=== PATIENT | male | born 1935 | race African-American/Black ===

== ENCOUNTER 2020-08-04 11:46 | Inpatient (IN) ==
[2020-08-04] MEDS ORDERED: ACETAMINOPHEN 500 MG TABLET PO STA (14:02)
[2020-08-04] MEDS ORDERED: AZITHROMYCIN INJ 500 MG in SODIUM CHLORIDE 0.9% 250 ML IV STA (14:03)
[2020-08-04] MEDS ORDERED: cefTRIAXone 1,000 MG in SODIUM CHLORIDE 0.9% 100 ML IV STA (14:03)
[2020-08-04 14:35] LABS: Basophils % 0.2 % (0.0-0.8); Eosinophils % 0.2 % (0.00-10.9); Hematocrit 38.8 VOL% (42.0-52.0); Hemoglobin 12.9 GM/DL (14.0-18.0); Immature Granulocytes % 0.9 %; Immature Granulocytes Absolute 0.06 #; Lymphocytes # 0.4 10*3/uL (1.4-4.0); Lymphocytes % 6.5 % (21.2-54.2); Mean Corpuscular HGB Conc 33.2 GM/DL (32-36); Mean Platelet Volume 10.9 FL (9.6-12.0); Monocytes % 18.1 % (1.7-12.7); Neutrophils % 74.1 % (38.7-73.9); Platelet Count 90 T/CUMM (130-400); Red Blood Count 4.51 MC/CUMM (3.8-5.5); Red Cell Distribution Width 17.2 % (9.3-17.3); White Blood Count 6.6 T/CUMM (4-12)
[2020-08-04 14:58] LABS: Albumin 3.2 G/DL (3.4-5.0); Bilirubin,Total 0.9 MG/DL (0.2-1.0); Calcium 9.8 MG/DL (8.5-10.1); Ferritin 347.7 ng/ml (26-388); Osmolality,Calculated 268.4 MOS/KG (273-304); Total Protein 8.4 G/DL (6.4-8.3)
[2020-08-04] MEDS ORDERED: DEXTROSE 50% 25 GM/50 ML VIAL IV PRN (15:25)
[2020-08-04] MEDS ORDERED: GLUCAGON 1 MG VIAL IM PRN (15:25)
[2020-08-04] MEDS ORDERED: ACETAMINOPHEN 325 MG TABLET PO PRN (15:25)
[2020-08-04] MEDS ORDERED: ONDANSETRON 4 MG/2 ML VIAL IV PRN (15:25)
[2020-08-04] MEDS ORDERED: CETIRIZINE 10 MG TABLET PO PRN (15:25)
[2020-08-04 16:05] LABS: Band Neutrophils 2 % (0-10); Lymphocytes 9 % (20-55); Platelet Estimate Decreased; Segmented Neutrophils 72 % (50-85); Total Cells Counted 100
[2020-08-04 16:28] LABS: Risk Ratio 2.81; VLDL CHOLESTEROL 19.4 MG/DL
[2020-08-04 16:29] LABS: Thyroid Stimulating Hormone 0.762 uIU/ml (0.358-3.74)
[2020-08-04] MEDS: SODIUM CHLORIDE 0.9% 1,000 ML IV SCH (17:22)
[2020-08-04] MEDS: DEXAMETHASONE 4 MG/1 ML VIAL IV SCH (17:23)
[2020-08-04] MEDS: ENOXAPARIN 40 MG/0.4 ML SYRINGE SUBCUT SCH (21:46)
[2020-08-04] MEDS: ASCORBIC ACID 500 MG TABLET PO SCH (21:47)
[2020-08-04] MEDS: FAMOTIDINE 20 MG TABLET PO SCH (21:47)
[2020-08-05 06:22] LABS: Hematocrit 33.2 VOL% (42.0-52.0); Hemoglobin 11.4 GM/DL (14.0-18.0); Immature Granulocytes % 1.2 %; Immature Granulocytes Absolute 0.06 #; Lymphocytes # 0.3 10*3/uL (1.4-4.0); Lymphocytes % 5.3 % (21.2-54.2); Mean Corpuscular HGB Conc 34.3 GM/DL (32-36); Mean Corpuscular Volume 85.3 FL (87-102); Monocytes % 12.7 % (1.7-12.7); Neutrophils % 80.8 % (38.7-73.9); Red Blood Count 3.89 MC/CUMM (3.8-5.5)
[2020-08-05 06:23] LABS: Platelet Count 83 T/CUMM (130-400)
[2020-08-05] MEDS: SODIUM CHLORIDE 0.9% 1,000 ML IV SCH (06:45)
[2020-08-05 06:48] LABS: Calcium 9.7 MG/DL (8.5-10.1); Osmolality,Calculated 272.1 MOS/KG (273-304)
[2020-08-05 06:51] LABS: Lymphocytes 5 % (20-55); Nucleated Red Blood Cells 1 (0-5); Platelet Estimate Decreased; Segmented Neutrophils 87 % (50-85); Total Cells Counted 100
[2020-08-05 06:52] LABS: Microcytosis Slight
[2020-08-05] MEDS ORDERED: POTASSIUM CHLORIDE 20 MEQ TABLET PO ONE (07:26)
[2020-08-05] MEDS ORDERED: IRON DEXTRAN 25 MG in SYRINGE 1 EACH IV ONE (07:28)
[2020-08-05 07:46] LABS: Bilirubin,Urine Negative (Negative); Blood, Urine Small mg/dL (Negative); Glucose,Urine (UA) Negative (Negative); Ketones,Urine Negative (Negative); Mucus,Urine Occasional /LPF (Occasional); Nitrite,Urine Negative (Negative); Protein,Urine 100 MG/DL; RBC,Urine 3 /HPF (0-4); Urine Appearance CLEAR (Clear); Urine Color Yellow (Yellow); Urine Urobilinogen < 2.0 EU/DL (0.2-1.0); WBC,Urine 1 /HPF (0-6)
[2020-08-05] MEDS ORDERED: LACTATED RINGERS 1,000 ML IV ONE (08:04)
[2020-08-05 08:21] LABS: Barbiturates Screen,Urine Negative (Negative); Benzodiazepines Screen,Urine Negative (Negative); Cannabinoid Screen,Urine Negative (Negative); Opiate Screen,Urine Negative (Negative); Phencyclidine Screen,Urine Negative (Negative)
[2020-08-05] MEDS: ZINC SULFATE 220 MG CAPSULE PO SCH (09:17)
[2020-08-05] MEDS: ASCORBIC ACID 500 MG TABLET PO SCH ×2 (09:17→21:38)
[2020-08-05] MEDS: cefTRIAXone 1,000 MG in SYRINGE 1 EACH IV SCH (09:17)
[2020-08-05] MEDS: CHOLECALCIFEROL 1,000 UNIT TABLET PO SCH (09:18)
[2020-08-05] MEDS: guaiFENesin/DM ER 600-30 MG TABLET PO SCH ×2 (09:27→21:38)
[2020-08-05] MEDS: DEXAMETHASONE 4 MG/1 ML VIAL IV SCH (09:27)
[2020-08-05] MEDS: AZITHROMYCIN INJ 500 MG in SODIUM CHLORIDE 0.9% 250 ML IV SCH (11:34)
[2020-08-05] MEDS: FERROUS SULFATE 325 MG TABLET PO SCH ×2 (13:38→21:38)
[2020-08-05] MEDS ORDERED: REMDESIVIR 200 MG in SODIUM CHLORIDE 0.9% 210 ML IV ONE (17:00)
[2020-08-05] MEDS ORDERED: SODIUM CHLORIDE 0.9% 1,000 ML IV PRN (18:09)
[2020-08-05] MEDS: FAMOTIDINE 20 MG TABLET PO SCH (21:38)
[2020-08-05] MEDS: ENOXAPARIN 40 MG/0.4 ML SYRINGE SUBCUT SCH (21:38)
[2020-08-06] MEDS: SODIUM CHLORIDE 0.9% 1,000 ML IV SCH ×3 (01:15→17:02)
[2020-08-06 06:10] LABS: Basophils % 0.2 % (0.0-0.8); Hemoglobin 11.8 GM/DL (14.0-18.0); Immature Granulocytes % 2.1 %; Immature Granulocytes Absolute 0.12 #; Lymphocytes # 0.2 10*3/uL (1.4-4.0); Lymphocytes % 3.1 % (21.2-54.2); Mean Corpuscular HGB Conc 33.7 GM/DL (32-36); Mean Corpuscular Volume 85.6 FL (87-102); Monocytes % 8.7 % (1.7-12.7); Neutrophils % 85.9 % (38.7-73.9); Platelet Count 104 T/CUMM (130-400); Red Blood Count 4.09 MC/CUMM (3.8-5.5); Red Cell Distribution Width 17.2 % (9.3-17.3); White Blood Count 5.8 T/CUMM (4-12)
[2020-08-06 06:35] LABS: Albumin 2.8 G/DL (3.4-5.0); Bilirubin,Total 0.6 MG/DL (0.2-1.0); Calcium 9.5 MG/DL (8.5-10.1); Osmolality,Calculated 276.8 MOS/KG (273-304); Total Protein 7.5 G/DL (6.4-8.3)
[2020-08-06 06:53] LABS: Band Neutrophils 3 % (0-10); Hypochromasia Slight; Lymphocytes 4 % (20-55); Microcytosis Slight; Platelet Estimate Decreased; Segmented Neutrophils 86 % (50-85); Total Cells Counted 100
[2020-08-06] MEDS: ZINC SULFATE 220 MG CAPSULE PO SCH (08:40)
[2020-08-06] MEDS: cefTRIAXone 1,000 MG in SYRINGE 1 EACH IV SCH (08:40)
[2020-08-06] MEDS: DEXAMETHASONE 4 MG/1 ML VIAL IV SCH (08:40)
[2020-08-06] MEDS: ASCORBIC ACID 500 MG TABLET PO SCH ×2 (08:41→22:00)
[2020-08-06] MEDS: AZITHROMYCIN INJ 500 MG in SODIUM CHLORIDE 0.9% 250 ML IV SCH (08:41)
[2020-08-06] MEDS: guaiFENesin/DM ER 600-30 MG TABLET PO SCH ×2 (08:41→22:00)
[2020-08-06] MEDS: FERROUS SULFATE 325 MG TABLET PO SCH ×2 (08:41→22:00)
[2020-08-06] MEDS: CHOLECALCIFEROL 1,000 UNIT TABLET PO SCH (08:41)
[2020-08-06] MEDS: REMDESIVIR 100 MG in SODIUM CHLORIDE 0.9% 230 ML IV SCH (10:15)
[2020-08-06] MEDS ORDERED: DEXAMETHASONE 4 MG/1 ML VIAL IV SCH (10:43)
[2020-08-06 12:32] LABS: ABG Base Excess 1.4 MMOL/L (-2.5-2.5); ABG HCO3 25.5 MMOL/L (20-26); ABG Oxygen Saturation 91.2 % (95-100); ABG PCO2 31.7 MM HG (35-48); ABG PH 7.489 (7.35-7.45); ABG TCO2 21.4 MMOL/L (23-27)
[2020-08-06] MEDS: ENOXAPARIN 40 MG/0.4 ML SYRINGE SUBCUT SCH (22:00)
[2020-08-06] MEDS: FAMOTIDINE 20 MG TABLET PO SCH (22:00)
[2020-08-07] MEDS: SODIUM CHLORIDE 0.9% 1,000 ML IV SCH ×5 (02:57→22:41)
[2020-08-07 06:04] LABS: Basophils % 0.2 % (0.0-0.8); Hematocrit 34.3 VOL% (42.0-52.0); Hemoglobin 11.7 GM/DL (14.0-18.0); Immature Granulocytes % 2.3 %; Lymphocytes # 0.3 10*3/uL (1.4-4.0); Lymphocytes % 7.7 % (21.2-54.2); Mean Corpuscular HGB Conc 34.1 GM/DL (32-36); Mean Corpuscular Volume 85.3 FL (87-102); Mean Platelet Volume 11.3 FL (9.6-12.0); Monocytes % 11.9 % (1.7-12.7); Neutrophils % 77.9 % (38.7-73.9); Platelet Count 124 T/CUMM (130-400); Red Blood Count 4.02 MC/CUMM (3.8-5.5); Red Cell Distribution Width 17.1 % (9.3-17.3); White Blood Count 4.3 T/CUMM (4-12)
[2020-08-07 06:35] LABS: Albumin 2.5 G/DL (3.4-5.0); Bilirubin,Total 2.1 MG/DL (0.2-1.0); Calcium 9.6 MG/DL (8.5-10.1)
[2020-08-07 06:43] LABS: Hypochromasia 1+; Microcytosis 1+; Platelet Estimate Adequate
[2020-08-07] MEDS: ASCORBIC ACID 500 MG TABLET PO SCH ×2 (08:58→20:40)
[2020-08-07] MEDS: ZINC SULFATE 220 MG CAPSULE PO SCH (08:58)
[2020-08-07] MEDS: FERROUS SULFATE 325 MG TABLET PO SCH ×2 (08:58→20:40)
[2020-08-07] MEDS: CHOLECALCIFEROL 1,000 UNIT TABLET PO SCH (08:58)
[2020-08-07] MEDS: guaiFENesin/DM ER 600-30 MG TABLET PO SCH ×2 (08:58→20:40)
[2020-08-07] MEDS: cefTRIAXone 1,000 MG in SYRINGE 1 EACH IV SCH (09:00)
[2020-08-07] MEDS: REMDESIVIR 100 MG in SODIUM CHLORIDE 0.9% 230 ML IV SCH (09:01)
[2020-08-07] MEDS: AZITHROMYCIN INJ 500 MG in SODIUM CHLORIDE 0.9% 250 ML IV SCH (09:02)
[2020-08-07] MEDS: amLODIPine 5 MG TABLET PO SCH (16:21)
[2020-08-07] MEDS: ENOXAPARIN 40 MG/0.4 ML SYRINGE SUBCUT SCH (20:40)
[2020-08-07] MEDS: FAMOTIDINE 20 MG TABLET PO SCH (20:40)
[2020-08-08] MEDS: guaiFENesin/CODEINE 5 ML LIQUID PO PRN ×3 (05:03→22:45)
[2020-08-08 05:39] LABS: Basophils % 0.3 % (0.0-0.8); Eosinophils % 0.3 % (0.00-10.9); Hematocrit 33.4 VOL% (42.0-52.0); Hemoglobin 11.4 GM/DL (14.0-18.0); Immature Granulocytes % 6.2 %; Immature Granulocytes Absolute 0.23 #; Lymphocytes # 0.4 10*3/uL (1.4-4.0); Lymphocytes % 11.1 % (21.2-54.2); Mean Corpuscular HGB Conc 34.1 GM/DL (32-36); Mean Corpuscular Volume 85.2 FL (87-102); Mean Platelet Volume 11.2 FL (9.6-12.0); Monocytes % 11.4 % (1.7-12.7); Neutrophils % 70.7 % (38.7-73.9); Platelet Count 139 T/CUMM (130-400); Red Blood Count 3.92 MC/CUMM (3.8-5.5); White Blood Count 3.7 T/CUMM (4-12)
[2020-08-08 06:03] LABS: Hypochromasia Slight; Lymphocytes 8 % (20-55); Microcytosis Slight; Nucleated Red Blood Cells 1 (0-5); Platelet Estimate Adequate; Segmented Neutrophils 85 % (50-85); Total Cells Counted 100
[2020-08-08 06:17] LABS: Albumin 2.4 G/DL (3.4-5.0); Bilirubin,Total 1.1 MG/DL (0.2-1.0); Calcium 9.3 MG/DL (8.5-10.1); Osmolality,Calculated 275.8 MOS/KG (273-304); Total Protein 6.7 G/DL (6.4-8.3)
[2020-08-08] MEDS ORDERED: POTASSIUM CHLORIDE 20 MEQ TABLET PO ONE (08:00)
[2020-08-08] MEDS: ASCORBIC ACID 500 MG TABLET PO SCH ×2 (09:29→20:10)
[2020-08-08] MEDS: ZINC SULFATE 220 MG CAPSULE PO SCH (09:29)
[2020-08-08] MEDS: amLODIPine 5 MG TABLET PO SCH (09:29)
[2020-08-08] MEDS: DEXAMETHASONE 4 MG TABLET PO SCH (09:29)
[2020-08-08] MEDS: FERROUS SULFATE 325 MG TABLET PO SCH ×2 (09:29→20:10)
[2020-08-08] MEDS: CHOLECALCIFEROL 1,000 UNIT TABLET PO SCH (09:30)
[2020-08-08] MEDS: SODIUM CHLORIDE 0.9% 1,000 ML IV SCH ×2 (09:30→12:20)
[2020-08-08] MEDS: cefTRIAXone 1,000 MG in SYRINGE 1 EACH IV SCH (09:30)
[2020-08-08] MEDS: guaiFENesin/DM ER 600-30 MG TABLET PO SCH ×2 (09:30→20:10)
[2020-08-08] MEDS: REMDESIVIR 100 MG in SODIUM CHLORIDE 0.9% 230 ML IV SCH (09:31)
[2020-08-08] MEDS: AZITHROMYCIN INJ 500 MG in SODIUM CHLORIDE 0.9% 250 ML IV SCH (09:31)
[2020-08-08] MEDS: ENOXAPARIN 40 MG/0.4 ML SYRINGE SUBCUT SCH (20:10)
[2020-08-08] MEDS: FAMOTIDINE 20 MG TABLET PO SCH (20:10)
[2020-08-09] MEDS: SODIUM CHLORIDE 0.9% 1,000 ML IV SCH (00:38)
[2020-08-09 06:16] LABS: Basophils % 1.3 % (0.0-0.8); Hematocrit 32.7 VOL% (42.0-52.0); Immature Granulocytes % 14.4 %; Immature Granulocytes Absolute 0.45 #; Lymphocytes # 0.5 10*3/uL (1.4-4.0); Lymphocytes % 16.9 % (21.2-54.2); Mean Corpuscular HGB Conc 33.6 GM/DL (32-36); Mean Corpuscular Volume 85.6 FL (87-102); Mean Platelet Volume 11.3 FL (9.6-12.0); Monocytes % 14.4 % (1.7-12.7); NRBC # 0.02 10*3/uL; Platelet Count 170 T/CUMM (130-400); Red Blood Count 3.82 MC/CUMM (3.8-5.5); White Blood Count 3.1 T/CUMM (4-12)
[2020-08-09 06:34] LABS: Albumin 2.4 G/DL (3.4-5.0); Bilirubin,Total 0.6 MG/DL (0.2-1.0); Calcium 9.2 MG/DL (8.5-10.1); Osmolality,Calculated 276.7 MOS/KG (273-304); Total Protein 6.7 G/DL (6.4-8.3)
[2020-08-09 06:41] LABS: Eosinophils 3 % (0-10); Lymphocytes 28 % (20-55); Segmented Neutrophils 56 % (50-85); Total Cells Counted 100
[2020-08-09 06:42] LABS: Platelet Estimate Normal
[2020-08-09] MEDS: REMDESIVIR 100 MG in SODIUM CHLORIDE 0.9% 230 ML IV SCH (09:10)
[2020-08-09] MEDS: ZINC SULFATE 220 MG CAPSULE PO SCH (09:11)
[2020-08-09] MEDS: ASCORBIC ACID 500 MG TABLET PO SCH (09:11)
[2020-08-09] MEDS: CHOLECALCIFEROL 1,000 UNIT TABLET PO SCH (09:11)
[2020-08-09] MEDS: amLODIPine 5 MG TABLET PO SCH (09:11)
[2020-08-09] MEDS: DEXAMETHASONE 4 MG TABLET PO SCH (09:12)
[2020-08-09] MEDS: FERROUS SULFATE 325 MG TABLET PO SCH (09:12)
[2020-08-09] MEDS: guaiFENesin/DM ER 600-30 MG TABLET PO SCH (09:41)
[2020-08-09] MEDS: cefTRIAXone 1,000 MG in SYRINGE 1 EACH IV SCH (09:41)
[2020-08-09 11:21] VITALS: BP 160/78
== END 2020-08-09 13:10 | disposition swing bed (61) | DRG 177 ==
LOC: N.ED 11:46 → N.EDINP 11:46 → N.2E 16:27 → SUATTDRO 08-05 14:18
PROVIDERS: ADMIT Family Medicine; ATTEND Internal Medicine